=== PATIENT | male | born 1975 | race Caucasian/White ===

== ENCOUNTER 2017-06-14 10:49 | Emergency (ER) | payer OTHER ==
[~2017-06-14] VITALS: Ht 170.2 cm; Wt 77.1 kg
--- NOTE | 2017-06-14 11:00 | NUR ---
PT [facility] FROM [facility]. C/O HEADACHE X TODAY. DENIES TRAUMA. HX OF HYPOGLYCEMIA. PT IS AAO, VSS. AWAITING MD MCKENZIE.
--- NOTE | 2017-06-14 11:03 | NUR ---
PT IS REFUSING BLOOD DRAW. DR GRIFFITHS AWARE.
--- NOTE | 2017-06-14 11:06 | NUR ---
ACCUCHECK 131. ERMD AWARE.
--- NOTE | 2017-06-14 11:22 | NUR ---
PT TO RADIOLOGY FOR HEAD CT SCAN VIA [facility].
--- NOTE | 2017-06-14 12:12 | NUR ---
MEDICALLY CLEARED. PT IS D/C TO PD IN STABLE CONDITION.
[2017-06-14 12:13] VITALS: BP 125/77
== END 2017-06-14 12:14 ==
LOC: ER 10:50
DX: R51 Headache (principal); E11.649 Type 2 diabetes mellitus with hypoglycemia without coma; F17.200 Nicotine dependence, unspecified, uncomplicated
CPT/HCPCS: 70450; 82962; 99284; A4606; Z7610

== ENCOUNTER 2017-08-09 17:55 | Emergency (ER) | payer MEDICAID, OTHER ==
[~2017-08-09] VITALS: Ht 193 cm; Wt 90.7 kg
[2017-08-09 18:10] VITALS: BP 115/72
== END 2017-08-09 18:20 | disposition home or self-care (01) ==
LOC: ER 17:56
DX: S00.262A Insect bite (nonvenomous) of left eyelid and periocular area, initial encounter (principal); H01.004 Unspecified blepharitis left upper eyelid; F17.200 Nicotine dependence, unspecified, uncomplicated; E11.9 Type 2 diabetes mellitus without complications; W57.XXXA Bitten or stung by nonvenomous insect and other nonvenomous arthropods, initial encounter; Y93.89 Activity, other specified; Y92.89 Other specified places as the place of occurrence of the external cause; Y99.9 Unspecified external cause status
CPT/HCPCS: 99283; A4606; Z7610

== ENCOUNTER 2025-04-29 02:49 | Emergency (ER) | payer MEDICAID ==
[~2025-04-29] VITALS: Ht 193 cm; Wt 77.1 kg
[2025-04-29 03:05] VITALS: BP 134/72; TEMP 98.7; O2SAT 97
[2025-04-29] MEDS ORDERED: CEPH-570 PO (03:19)
[2025-04-29] MEDS ORDERED: SULF1TAB48 PO (03:19)
== END 2025-04-29 03:24 | disposition home or self-care (01) ==
LOC: ER 02:49
DX: L73.1 Pseudofolliculitis barbae (principal); L03.221 Cellulitis of neck; F17.200 Nicotine dependence, unspecified, uncomplicated; E11.9 Type 2 diabetes mellitus without complications